=== PATIENT | female | born 1990 | race Caucasian/White ===

== ENCOUNTER 2018-07-07 20:11 | Inpatient (IN) ==
[2018-07-07 21:31] LABS: Baso % (Auto) 0.3 % (0.0-2.0); Eos % (Auto) 0.5 % (0.0-4.0); Hematocrit 38.3 % (35.0-46.0); Hemoglobin 12.9 gm/dL (11.6-15.3); Lymph # (Auto) 1.9 th/mm3 (1.0-4.8); Lymph % (Auto) 21.2 % (9.0-44.0); Mean Corpuscular HGB Conc 33.6 % (32.0-36.0); Mean Corpuscular Hemoglobin 28.9 pg (27.0-34.0); Mean Platelet Volume 8.6 fL (7.0-11.0); Mono # (Auto) 0.8 th/mm3 (0.0-0.9); Mono % (Auto) 8.5 % (0.0-8.0); Neut # (Auto) 6.3 th/mm3 (1.8-7.7); Neut % (Auto) 69.5 % (16.0-70.0); Platelet Count 251 th/mm3 (150-450); Red Blood Count 4.45 mil/mm3 (4.00-5.30); Red Cell Distribution Width 13.8 % (11.6-17.2)
[2018-07-07] MEDS ORDERED: fentaNYL Citrate Inj 100 MCG/2 ML Ampul IV.PUSH PRN ×3 (21:31→21:36)
[2018-07-07 21:34] LABS: Bacteria,Urine Moderate /hpf; Bilirubin,Urine Negative (Negative); Clarity,Urine Hazy (Clear); Color,Urine Yellow (Yellw/Straw); Glucose,Urine (UA) Negative (Negative); Leukocyte Esterase,Urine Trace (Negative); Mucus,Urine Few /lpf (Occasional); Nitrite,Urine Negative (Negative); Specific Gravity,Urine 1.018 (1.002-1.035); Squamous Epithelial Cell,Urine 5 /hpf (0-5)
[2018-07-07 21:36] LABS: Amphetamine Urine With Conf Neg (Neg); Benzodiazepine Urine With Conf Neg (Neg)
[2018-07-07] MEDS ORDERED: Oxytocin 30 Units/500ml Premix 30 UNITS/500 ML BAG IV.SIG ONE (21:36)
[2018-07-07] MEDS ORDERED: Naloxone Inj 0.4 MG/ML Vial IV.PUSH PRN (21:36)
[2018-07-07] MEDS ORDERED: Citric Acid/Sodium Citrate Liq 30 ML UDC PO SCH (21:45)
[2018-07-07] MEDS ORDERED: Sod Chloride 0.9% Inj 1,000 ML IV.CONT PRN (21:47)
[2018-07-07] MEDS ORDERED: Sodium Chlor 0.9% Inj 500 ML IV.SIG PRN (21:47)
[2018-07-08] MEDS ORDERED: Oxytocin 30 Units/500ml Premix 30 UNITS/500 ML BAG IV.CONT PRN ×2 (06:30→22:30)
[2018-07-08] MEDS: fentaNYL Citrate Inj 100 MCG/2 ML Ampul IV.PUSH PRN ×2 (11:23→13:42)
[2018-07-08] MEDS ORDERED: fentaNYL 2MCG-Bupiv 0.125% Epi 150 ML EPIDURAL ONE (14:33)
[2018-07-08] MEDS ORDERED: Lidocaaine 1.5%/Epinephrine 1:200,000 PF Inj 5 ML Amp ONE (14:54)
[2018-07-08] MEDS ORDERED: Lidocaine PF 1% Inj 5 ML Vial ONE (14:54)
[2018-07-08] MEDS ORDERED: fentaNYL Citrate Inj 100 MCG/2 ML Ampul EPIDURAL ONE (15:52)
[2018-07-08] MEDS ORDERED: fentaNYL 2MCG-Bupiv 0.125% Epi 150 ML EPIDURAL PRN (15:52)
[2018-07-08] MEDS ORDERED: Diphtheria/Tetanus/Pertussis Vaccine Inj 0.5 ML Syringe IM ONE (16:00)
[2018-07-08] MEDS ORDERED: Measles/Mumps/Rubella Vaccine Inj 0.5 ML Vial SQ ONE (16:00)
[2018-07-08] MEDS ORDERED: Lidocaine 1% Inj 50 ML Vial ONE (19:24)
[2018-07-08] MEDS ORDERED: Witch Hazel 50%/Glyderin 12.5% 40 Pad Jar RECTAL PRN (22:30)
[2018-07-08] MEDS ORDERED: Acetaminophen 325 MG Tablet PO PRN (22:30)
[2018-07-08] MEDS ORDERED: Zolpidem Tartrate 5 MG Tablet PO PRN (22:30)
[2018-07-08] MEDS ORDERED: Bisacodyl 10 MG Supp RECTAL PRN (22:30)
[2018-07-08] MEDS ORDERED: Naloxone Inj 0.4 MG/ML Vial IV.PUSH PRN (22:30)
[2018-07-08] MEDS ORDERED: Benzocaine 20% Top Spray 60 ML Can TOPICAL PRN (22:30)
--- NOTE | 2018-07-08 22:34 | P.OBDELI ---
Weeks Gestation: 41 Patient Started Active Labor: No Medical Induction of Labor: Yes Artificial Rupture of Membrane: Yes Anesthesia: Epidural Episiotomy: midline Vaginal Delivery: Normal Presentation: Occiput anterior Nuchal Cord: x1 Delayed Cord Clamping (45 sec): Yes Placenta: Spontaneous delivery, Intact, 3 vessel cord Laceration: Episiotomy, 2 deg Repair: Chromic interrupted, Chromic running Estimated blood loss (mL): 300 : Male
[2018-07-09 08:16] VITALS: O2SAT 96
[2018-07-09] MEDS ORDERED: PRENATAL FORMULA PO SCH (09:00)
[2018-07-09] MEDS: Senna/Docusate Sodium 8.6/50 MG Tablet PO SCH ×2 (11:37→21:13)
--- NOTE | 2018-07-09 12:43 | P.PNOB ---
Subjective Post day: 1 (Pt doing well, no pain, breast feeding) Objective Vital Signs/I&O: Vital Signs 07/08/18 13:01 07/08/18 13:30 07/08/18 13:45 Temperature 97.9 F Pulse Rate 75 71 Respiratory Rate 18 Blood Pressure 112/56 L 121/83 Pulse Oximetry 07/08/18 14:00 07/08/18 14:30 07/08/18 15:11 Temperature Pulse Rate 87 76 126 H Respiratory Rate Blood Pressure 122/85 125/75 139/91 H Pulse Oximetry 07/08/18 15:25 07/08/18 15:40 07/08/18 15:51 Temperature Pulse Rate 101 H 94 H 95 H Respiratory Rate Blood Pressure 110/43 L 98/41 L 111/41 L Pulse Oximetry 07/08/18 15:56 07/08/18 16:28 07/08/18 17:05 Temperature Pulse Rate 88 93 H 97 H Respiratory Rate 18 Blood Pressure 102/44 L 108/66 87/38 L Pulse Oximetry 07/08/18 17:17 07/08/18 17:20 07/08/18 17:40 Temperature 97.6 F Pulse Rate 90 81 Respiratory Rate Blood Pressure 111/57 L 116/69 Pulse Oximetry 07/08/18 18:01 07/08/18 18:15 07/08/18 18:30 Temperature Pulse Rate 117 H 136 H Respiratory Rate 18 Blood Pressure 93/49 L 108/59 L Pulse Oximetry 07/08/18 19:01 07/08/18 19:15 07/08/18 19:42 Temperature 98.0 F Pulse Rate 104 H 129 H Respiratory Rate 18 Blood Pressure 121/77 119/70 Pulse Oximetry 07/08/18 20:00 07/08/18 20:10 07/08/18 20:30 Temperature Pulse Rate 128 H 122 H Respiratory Rate 16 Blood Pressure 127/63 108/48 L Pulse Oximetry 07/08/18 21:04 07/08/18 22:45 07/08/18 22:47 Temperature Pulse Rate 119 H 132 H 119 H Respiratory Rate 18 18 Blood Pressure 109/51 L 121/67 104/56 L Pulse Oximetry 07/08/18 23:03 07/08/18 23:15 07/08/18 23:30 Temperature 98.8 F Pulse Rate 120 H 127 H Respiratory Rate 18 18 Blood Pressure 108/57 L 101/56 L Pulse Oximetry 07/08/18 23:45 07/08/18 23:51 07/09/18 00:00 Temperature Pulse Rate 124 H 126 H Respiratory Rate 18 16 Blood Pressure 107/58 L 105/59 L Pulse Oximetry 07/09/18 00:18 07/09/18 00:45 07/09/18 01:10 Temperature Pulse Rate 85 111 H 134 H Respiratory Rate 18 Blood Pressure 113/65 117/58 L 106/65 Pulse Oximetry 07/09/18 01:30 07/09/18 08:00 07/09/18 08:15 Temperature 98.3 F 97.5 F L 97.5 F L Pulse Rate 121 H 108 H 103 H Respiratory Rate 18 20 20 Blood Pressure 112/64 127/59 L 127/59 L Pulse Oximetry 96 Intake & Output 07/08/18 07/09/18 07/09/18 18:59 06:59 18:59 Intake Total 1999 Balance 1999 Intake: IV 1999 LR 1000 mL Inj 1,000 ML @ 125 1999 mls/hr IV.CONT .Q8H [facility] Rx#: [id number] Result Diagrams: 07/07/18 21:10 Objective Remarks: GENERAL: Well-nourished, well-developed patient. CARDIOVASCULAR: Regular rate and rhythm without murmurs, gallops, or rubs. RESPIRATORY: Breath sounds equal bilaterally. No accessory muscle use. ABDOMEN/GI: Abdomen soft, non-tender. Fundus: Firm, non-tender at umbilicus. GENITOURINARY: Light to moderate bleeding. EXTREMITIES: No cyanosis or edema, non-tender, without signs of DVT. Medications and IVs: Active Medications Acetaminophen (Tylenol) 650 mg PO Q4H PRN PRN Reason: PAIN SCALE 1 TO 2 Al Hydroxide/Mg Hydroxide (Milk Of Magnesia Liq) 30 ml PO Q12H PRN PRN Reason: Mild Constipation Benzocaine (Americaine 20% Top [place]) 1 spray TOPICAL Q4H PRN PRN Reason: For Perineum Discomfort Last Admin: 07/09/18 07:46 Dose: 1 spray Bisacodyl (Dulcolax Supp) 10 mg RECTAL DAILY PRN PRN Reason: SEVERE CONSITIPATION Citric Acid/Sodium Citrate (Sodium Citrate/Citric Acid Liq) 30 ml PO [employer]ENT [employer]INTE[employer]CE [facility] Stop: 07/11/18 21:44 Ephedrine Sulfate (Ephedrine/Ns Syringe) 10 mg IV.PUSH UNSCH PRN PRN Reason: SEE LABEL COMMENTS Stop: 07/09/18 15:52 Last Admin: 07/08/18 15:42 Dose: 10 mg Fentanyl Citrate (Fentanyl Inj) 50 mcg IV.PUSH Q1H PRN PRN Reason: PAIN SCALE 1 TO 5 Fentanyl Citrate (Fentanyl Inj) 100 mcg IV.PUSH Q1H PRN PRN Reason: PAIN LEVEL 6 TO 10 Last Admin: 07/08/18 13:42 Dose: 100 mcg Oxytocin (Pitocin 30 Units/Ns 500 Ml Premix) 30 units in 500 mls @ 2 mls/hr IV.CONT TITRATE PRN; Protocol PRN Reason: For induction of labor Last Admin: 07/08/18 06:32 Dose: 2 milliunit/min, 2 mls/hr Lactated Ringer's (Lr 1000 Ml Inj) 1,000 mls @ 125 mls/hr IV.CONT .Q8H [facility] Last Admin: 07/09/18 08:42 Dose: Not Given Sodium Chloride (Ns Inj) 500 mls @ 1,000 mls/hr IV.SIG UNSCH PRN PRN Reason: SEE LABEL COMMENTS Sodium Chloride (Ns Inj) 1,000 mls @ 100 mls/hr IV.CONT .Q10H PRN PRN Reason: SEE LABEL COMMENTS Lactated Ringer's (Lr 1000 Ml Inj) 1,000 mls @ 3,000 mls/hr IV.SIG UNSCH PRN PRN Reason: compromise or epidural Last Admin: 07/08/18 15:59 Dose: 3,000 mls/hr Fentanyl/Bupivacaine/Sodium Chlor (Fentanyl 2 Mcg-Bupiv 0.125% Epi) 150 mls @ 10 mls/hr EPIDURAL PRN PRN PRN Reason: for Labor Pain Last Admin: 07/08/18 15:15 Dose: 10 mls/hr Oxytocin (Pitocin 30 Units/Ns 500 Ml Premix) 30 units in 500 mls @ 100 mls/hr IV.CONT UNSCH PRN PRN Reason: Heavy bleeding Ibuprofen (Motrin) 800 mg PO Q8H PRN PRN Reason: For Cramping Lactulose (Lactulose Liq) 30 ml PO DAILY PRN PRN Reason: SEVERE CONSITIPATION Lidocaine HCl (Xylocaine 1% Inj) 0.1 ml I-DERMAL PRN PRN PRN Reason: For IV start Stop: 07/10/18 21:35 Lidocaine HCl (Xylocaine 1% Inj) 10 ml INFILTRATN PRN PRN PRN Reason: For episiotomy repair Stop: 07/09/18 21:35 Mineral Oil (Muri-Lube Oil) 10 ml TOPICAL PRN PRN PRN Reason: PRN perineal massage Miscellaneous Information (Misc Information) 1 each OTHER UNSCH PRN PRN Reason: SEE LABEL COMMENTS Stop: 07/09/18 15:52 Miscellaneous Information (Misc Information) 1 each OTHER UNSCH PRN PRN Reason: SEE LABEL COMMENTS Stop: 07/09/18 15:52 Naloxone HCl (Narcan Inj) 0.1 mg IV.PUSH Q2M PRN PRN Reason: for opiate reversal Ondansetron HCl (Zofran Inj) 4 mg IV.PUSH Q6H PRN PRN Reason: NAUSEA OR VOMITING Ondansetron HCl (Zofran Odt) 4 mg PO Q6H PRN PRN Reason: NAUSEA OR VOMITING Oxycodone/Acetaminophen (Percocet 5/325 Mg) 1 tab PO Q4H PRN PRN Reason: PAIN SCALE 3 TO 5 Oxycodone/Acetaminophen (Percocet 5/325 Mg) 2 tab PO Q4H PRN PRN Reason: PAIN SCALE 6 TO 10 Vit/Calcium/Iron/Folic Ac (Stuartnatal Plus 3) 1 tab PO DAILY [facility] Senna/Docusate Sodium (Nichelle-Colace) 1 tab PO BID [facility] Last Admin: 07/09/18 11:37 Dose: 1 tab Sennosides (Senokot) 17.2 mg PO Q12H PRN PRN Reason: Moderate Constipation Sodium Chloride (Ns Flush) 2 ml IV.FLUSH BID [facility] Last Admin: 07/09/18 11:03 Dose: Not Given Sodium Chloride (Ns Flush) 2 ml IV.FLUSH PRN PRN PRN Reason: FLUSH AFTER USING IV ACCESS Sodium Chloride (Ns Flush) 2 ml IV.FLUSH BID [facility] Last Admin: 07/09/18 11:04 Dose: Not Given Sodium Chloride (Ns Flush) 2 ml IV.FLUSH PRN PRN PRN Reason: FLUSH AFTER USING IV ACCESS Witch Monika/Glycerin (Tucks Pads) 1 applicatio RECTAL QID PRN PRN Reason: HEMORRHOIDS Last Admin: 07/09/18 07:46 Dose: 1 applicatio Zolpidem Tartrate (Ambien) 10 mg PO HS PRN PRN Reason: SLEEP Zolpidem Tartrate (Ambien) 5 mg PO HS PRN PRN Reason: SLEEP Assessment and Plan - Plan PPD # 1 s/p doing well, routine care
[2018-07-09] MEDS: Prenatal Vit/Ca/Iron/Folic Acid Tablet PO SCH (18:26)
[2018-07-10 08:37] VITALS: BP 111/54; PULSE 81; RESP 20; TEMP 97.6
[2018-07-10] MEDS: Prenatal Vit/Ca/Iron/Folic Acid Tablet PO SCH (09:32)
[2018-07-10] MEDS: Senna/Docusate Sodium 8.6/50 MG Tablet PO SCH (09:32)
== END 2018-07-10 17:45 | disposition home or self-care (01) ==
LOC: H2E 20:11 → H1EA 07-09 01:23
PROVIDERS: ADMIT Obstetrics & Gynecology; ATTEND Obstetrics & Gynecology